=== PATIENT | female | born 1990 | race Caucasian/White ===

== ENCOUNTER 2021-04-28 16:31 | Emergency (ER) | payer OTHER ==
[~2021-04-28] VITALS: Ht 162.6 cm; Wt 72.6 kg
[2021-04-28] MEDS: IBUPROFEN 600 MG TABLET PO ONE (17:16)
[2021-04-28] MEDS ORDERED: IBUPROFEN 600 MG TABLET ONE (17:24)
[2021-04-28] MEDS: ACETAMINOPHEN ES 500 MG TABLET PO ONE (17:42)
[2021-04-28] MEDS ORDERED: ACETAMINOPHEN ES 500 MG TABLET ONE (17:43)
[2021-04-28] MEDS: HYDROCODONE/APAP 5-325MG TABLET PO ONE (18:20)
--- NOTE | 2021-04-28 18:21 | NUR ---
Pt states improvement in shoulder pain, but states sternal pain continues to be at a 9/10. Provider aware. Medication administered per provider. Pt states will have someone pick her up at the end of the visit.
[2021-04-28] MEDS ORDERED: HYDROCODONE/APAP 5-325MG TABLET ONE (18:28)
[2021-04-28] MEDS ORDERED: HYDR-4209 PO (18:50)
--- NOTE | 2021-04-28 18:56 | NUR ---
Pt states great improvement in S/S. Patient discharged to home in stable condition. Written and verbal after care instructions given. Patient verbalizes understanding of instructions. Stressed follow up or return to ER for worsening s/s.
[2021-04-28 18:57] VITALS: BP 129/73
== END 2021-04-28 18:58 | disposition home or self-care (01) ==
LOC: ER 16:37
DX: S20.212A Contusion of left front wall of thorax, initial encounter (principal); S00.33XA Contusion of nose, initial encounter; Z79.899 Other long term (current) drug therapy; W10.9XXA Fall (on) (from) unspecified stairs and steps, initial encounter; Y93.89 Activity, other specified; Y92.89 Other specified places as the place of occurrence of the external cause; Y99.8 Other external cause status
CPT/HCPCS: 71101; A4663; A9150

== ENCOUNTER 2022-02-22 22:37 | Emergency (ER) | payer OTHER ==
[~2022-02-22] VITALS: Ht 162.6 cm; Wt 64.0 kg
[~2022-02-22 22:37] MED LIST: HYDR-4209 PO
--- NOTE | 2022-02-22 23:30 | NUR ---
Dr. Perez in room examining patient.
[2022-02-22] MEDS ORDERED: HYDR200T4 PO (23:31)
[2022-02-23] MEDS ORDERED: diphenhydrAMINE 50 MG/1 ML VIAL IV ONE (00:30)
[2022-02-23] MEDS ORDERED: METOCLOPRAMIDE HCL 10 MG/2 ML VIAL IV ONE (00:30)
[2022-02-23] MEDS ORDERED: IV NORMAL SALINE 1000 ML BAG IV ONE (00:30)
[2022-02-23] MEDS ORDERED: METOCLOPRAMIDE HCL 10 MG/2 ML VIAL ONE (00:42)
[2022-02-23] MEDS ORDERED: diphenhydrAMINE 50 MG/1 ML VIAL ONE (00:42)
[2022-02-23] MEDS ORDERED: METO-295 PO (01:24)
--- NOTE | 2022-02-23 01:35 | NUR ---
Patient discharged to home in stable condition. Written and verbal after care instructions given. Patient verbalizes understanding of instructions. Stressed follow up or return to ER for worsening s/s. Patient walked out with steady gait.
[2022-02-23 01:51] VITALS: BP 120/74
[2022-02-24 10:06] LABS: HEPATITIS A AB, IgM Negative (Negative); HEPATITIS A AB, TOTAL Positive (Negative); HEPATITIS B SURFACE AG Negative (Negative)
== END 2022-02-23 01:35 | disposition home or self-care (01) ==
LOC: ER 22:39
DX: O21.9 Vomiting of pregnancy, unspecified (principal); Z3A.01 Less than 8 weeks gestation of pregnancy; Z20.5 Contact with and (suspected) exposure to viral hepatitis; M32.9 Systemic lupus erythematosus, unspecified
CPT/HCPCS: 84702; 36415; 86708; 86803; 87340; 86705; 86709; 86706; 86704; 99284; 96374; 76819; 96375; J1200; J2765; J7040; A4663